=== PATIENT | female | born 1975 | race Caucasian/White ===

== ENCOUNTER 2016-10-04 16:35 | Emergency (ER) | payer BC ==
[2016-10-04 16:49] VITALS: BP 146/93
== END 2016-10-04 19:01 | disposition home or self-care (01) ==
LOC: ED 16:35
DX: M75.32 Calcific tendinitis of left shoulder (principal); Z79.1 Long term (current) use of non-steroidal anti-inflammatories (NSAID); Z79.891 Long term (current) use of opiate analgesic; Z79.82 Long term (current) use of aspirin; Z79.2 Long term (current) use of antibiotics
CPT/HCPCS: J7512